=== PATIENT | male | born 1940 | race Caucasian/White ===

== ENCOUNTER 2017-12-28 09:30 | Emergency (ER) | payer MEDICARE ==
[~2017-12-28 09:30] MED LIST: DOPamine/D5W 400 mg/250 ml PREMIX ONE; Sodium Chloride 0.9% 1,000 ML BAG ONE; Sodium Chloride 0.9% 100 ML BAG ONE
[2017-12-28] MEDS ORDERED: Ondansetron HCl/PF 4 MG/2 ML Vial ONE (09:59)
[2017-12-28 10:13] LABS: Bilirubin Moderate (Negative); Blood, Urine Negative (Negative); Clarity Clear (Clear); Glucose, Urine (Dipstick) Negative (Negative); Leukocyte Negative (Negative); Nitrite Negative (Negative); Protein, Urine (Dipstick) > or equal to 300 mg/dL (Neg-Trace); Specific Gravity, Urine 1.026 (1.002-1.036); Urobilinogen 0.2 mg/dL (0.2-1.0)
[2017-12-28 10:14] LABS: Bacteria/HPF 2+ HPF (None Seen); Squamous Epithelial 0-3 HPF (0-3); WBC/HPF 0-3 HPF (0-3)
[2017-12-28 10:15] LABS: RBC/HPF 0-3 HPF (0-3)
[2017-12-28 10:19] LABS: #Basophils 0.1 thou/uL (0.0-0.2); #Lymphocytes 1.2 thou/uL (1.20-3.40); #Monocytes 1.1 thou/uL (0.11-0.59); #Neutrophils 13.9 thou/uL (1.40-6.50); %Basophils 0.4 % (0.0-1.0); %Lymphocytes 7.3 % (21.0-51.0); %Monocytes 6.8 % (0.0-10.0); %Neutrophils 85.5 % (42.0-75.0); Hemoglobin 14.1 g/dL (14.0-18.0); Mean Corpuscular HGB CONC 32.2 g/dL (32.0-36.0); Mean Corpuscular Hemoglobin 29.2 pg (27.0-31.0); Mean Corpuscular Volume 90.6 fl (80.0-94.0); Mean Platelet Volume 7.4 fL (7.4-10.4); Platelet Count 233 thou/uL (130-400); RBC Distribution Width 13.6 % (11.5-14.5); Red Blood Cell (RBC) Count 4.82 mill/uL (4.70-6.10); White Blood Cell (WBC) Count 16.3 thou/uL (4.8-10.8)
[2017-12-28 10:22] LABS: INR-International Normal Ratio 1.6; PTT 31.1 SEC (22.9-36.1); Prothrombin Time 19.3 SEC (12.0-14.7)
[2017-12-28 10:33] LABS: ALT (SGPT) 282 U/L (8-55); AST (SGOT) 395 U/L (5-34); Albumin 4.3 g/dL (3.4-4.8); Alkaline Phosphatase 95 U/L (40-150); Anion Gap 31 mmol/L (10-20); BUN (Urea Nitrogen) 54 mg/dL (8.4-25.7); Bilirubin, Total 1.3 mg/dL (0.2-1.2); CK (CPK) 1309 U/L (30-200); Calc. Creatinine Clearance 0 mL/min (70-130); Calcium 9.4 mg/dL (7.8-10.44); Carbon Dioxide 14 mmol/L (23-31); Chloride 94 mmol/L (98-107); Estimated GFR-MDRD 18; Globulin 3.1 g/dL (2.4-3.5); Glucose 332 mg/dL (83-110); Lipase 10 U/L (8-78); Potassium 5.6 mmol/L (3.5-5.1); Protein, Total 7.4 g/dL (5.8-8.1); Sodium 133 mmol/L (136-145)
--- NOTE | 2017-12-28 10:34 | RAD ---
PORTABLE CHEST: History: Chest pain, nausea, and vomiting. FINDINGS: Heart size is borderline for portable technique. There are sclerotic changes of the aorta. There are some chronic appearing lung changes seen. No focal infiltrative process. Arthritic changes of the lef t shoulder are noted. IMPRESSION: Borderline heart size. Chronic lung change. POS: [facility]
--- NOTE | 2017-12-28 10:42 | RAD ---
2 VIEWS ABDOMEN: Date: 12/28/17 INDICATION: History of nausea and vomiting. FINDINGS: Patient hands overlying chest wall. Lung bases are clear. Bowel gas pattern is nonspecific, but witho ut overt evidence of obstruction. No acute osseous abnormality is evident. IMPRESSION: No acute abnormality. POS: [facility]
[2017-12-28 10:56] LABS: CKMB 108.7 ng/mL (0-6.6)
[2017-12-28] MEDS ORDERED: Piperacillin/Tazobactam 2.25 GM VIAL ONE (11:04)
[2017-12-28] MEDS ORDERED: Heparin 25,000 units/D5W 500 ML ONE (11:33)
[2017-12-28] MEDS ORDERED: Heparin 5,000 UNITS/ML VIAL ONE (11:33)
== END 2017-12-28 11:46 | disposition short-term general hospital (02) ==
LOC: MADERS 09:30
DX: I21.9 Acute myocardial infarction, unspecified (principal); A41.9 Sepsis, unspecified organism; E11.9 Type 2 diabetes mellitus without complications; R00.1 Bradycardia, unspecified; Z79.84 Long term (current) use of oral hypoglycemic drugs; Z79.899 Other long term (current) drug therapy
CPT/HCPCS: 36415; 36416; 51702; 71045; 74018; 80053; 81003; 81015; 82550; 82553; 83605; 83690; 84484; 85025; 85610; 85730; 87040; 87086; 93005; 94760; 96360; 96361; 96365; 96366; 96368; 96374; 96375; J1265; J1644; J2405; J2543; J7050

== ENCOUNTER 2018-07-20 17:45 | Inpatient (IN) | payer MEDICARE ==
[2018-07-20] MEDS: Apixaban 5 MG TAB PO SCH (21:54)
[2018-07-20] MEDS: Tamsulosin HCl 0.4 MG CAP PO SCH (21:54)
[2018-07-20] MEDS: Metoprolol Tartrate 50 MG TAB PO SCH (21:54)
[2018-07-20] MEDS: Gabapentin 300 MG CAP PO SCH (21:54)
[2018-07-20] MEDS ORDERED: Lantiseptic Ointment 130 GM JAR TOP PRN (22:05)
[2018-07-20] MEDS ORDERED: Dextrose 50% Abboject 50 ML SYRINGE IVP PRN (22:05)
[2018-07-20] MEDS ORDERED: Dextrose 5% in Water 1,000 ML IV PRN (22:05)
[2018-07-20] MEDS ORDERED: Lantiseptic Ointment 130 GM JAR ONE (22:50)
[2018-07-20 23:55] LABS: Bilirubin Negative (Negative); Blood, Urine Moderate (Negative); Clarity Hazy (Clear); Glucose, Urine (Dipstick) Negative (Negative); Leukocyte Moderate (Negative); Nitrite Negative (Negative); Protein, Urine (Dipstick) 100 mg/dL (Neg-Trace); Specific Gravity, Urine 1.015 (1.005-1.030)
[2018-07-21 00:02] LABS: Bacteria/HPF 4+ HPF (None Seen); RBC/HPF GREATER THAN 50-TNTC HPF (0-3); Squamous Epithelial 0-3 HPF (0-3)
[2018-07-21] MEDS: glipiZIDE 5 MG TAB PO SCH (08:31)
[2018-07-21] MEDS: Metoprolol Tartrate 50 MG TAB PO SCH ×2 (08:31→20:56)
[2018-07-21] MEDS: Finasteride 5 MG TAB PO SCH (08:31)
[2018-07-21] MEDS: Apixaban 5 MG TAB PO SCH ×2 (08:31→20:56)
[2018-07-21] MEDS: metFORMIN 500 MG TAB PO SCH ×2 (08:31→17:13)
[2018-07-21] MEDS: Digoxin 0.125 MG TAB PO SCH (08:31)
[2018-07-21] MEDS: Gabapentin 300 MG CAP PO SCH ×3 (08:31→20:56)
[2018-07-21] MEDS: Clopidogrel Bisulfate 75 MG TAB PO SCH (08:31)
[2018-07-21] MEDS ORDERED: Collagenase 250 UNITS/GM Ointment 30 GM TUBE TOP SCH (09:00)
[2018-07-21] MEDS: HumaLOG 300 UNITS/3 ML VIAL SC PRN (11:34)
[2018-07-21] MEDS: Tamsulosin HCl 0.4 MG CAP PO SCH (20:56)
[2018-07-21] MEDS: Collagenase 250 UNITS/GM Ointment 30 GM TUBE TOP SCH (20:59)
--- NOTE | 2018-07-22 08:19 | HP ---
PRIMARY CARE PHYSICIAN: Dr. Bettie Hernandez in [place]. REASON FOR ADMISSION: Skilled rehab in [facility] after recent hospitalization. SPECIALIST: Cardiology, ; Nephrology, Dr. Lundy. HISTORY OF THE PRESENT ILLNESS AND HOSPITAL COURSE: Mr. Monae is a 77-year- oldCaucasian male with history of type 2 diabetes, chronic diastolic heart failure,paroxysmal atrial fibrillation, and peripheral vascular disease. He presented to [facility] initially due to anasarca. Associated symptoms include increasing dyspnea, worsening lower extremity edema , scrotal edema, and abdominal wall distention. He has been on diuretic at home and was reported to have no significant response. On further evaluation, he was found to have significant hyponatremia with serum sodium on admission of 121. He was seen and evaluated by both Nephrology and Cardiology. The patient underwent fluid restriction, diuresis and conivaptan therapy. The patient showed a gradual interval improvement of his sodium during his hospital course. He remains to have fluid restriction to 1000 mL per 24 hours, as well as maintenance diuretic therapy until the time of discharge. His sodium at the time of discharge was reported at 133 and the patient was asymptomatic. From cardiology standpoint, the patient 's profound anasarca that was present upon admission showed gradual interval improvement over the course of hospitalization. There was also a suggestion from Cardiology that the patient needs to have an outpatient sleep study and this was already discussed by the hospitalist with the patient as well as the patient's spouse. With regard to the patient's diet, the patient was placed on mechanical soft with extra sauce and gravy and nectar thick liquids by Speech Therapy during his hospitalization secondary to difficulty swallowing noted. There was also a stage III decubital heel wound that was noted during this hospitalization. The patient had undergone wound care treatment during this hospital stay and it was recommended to continue current wound management at the skilled facility. When evaluated today, the patient reports that he is feeling a little better. He could not give a full information about his recent hospitalization, but he reports that he still feels weak and he was recommended to do his therapy so he can go home stronger. States that he needs some help when he is walking, but he is trying to walk using his walker. When orders were reviewed upon admission, there was an order for oxygen per nasal cannula p.r.n. to keep the saturation greater than 88%. The patient has been on room air since admission and there is no significant desaturation reported over the last 12 hours since admission. At this point, the patient reports no other issues. Reports that he is sleeping fine, eating good. He still has the Cerda catheter secondary to reported urinary retention and we are currently on bladder training. PAST MEDICAL HISTORY: As above. The patient also has benign enlargement of the prostate, dyslipidemia, coronary artery disease, and chronic anticoagulation. PAST SURGICAL HISTORY: Left shoulder surgery, cardiac catheterization. PAST PSYCHIATRIC HISTORY: Negative. SOCIAL HISTORY: The patient is . He drinks alcohol socially. He is a former smoker. He quit smoking more than 10 years ago. He denies any other illicit drug use. FAMILY HISTORY: Noncontributory. ALLERGIES: NO KNOWN DRUG ALLERGIES. CURRENT MEDICATION: 1. Eliquis 5 mg p.o. b.i.d. 2. Clopidogrel gel 75 mg p.o. daily. 3. Digoxin 0.125 mg p.o. daily. 4. Finasteride 5 mg p.o. daily. 5. Gabapentin 300 mg p.o. t.i.d. 6. Glipizide 5 mg daily. 7. Metformin 1000 mg p.o. b.i.d. 8. Metoprolol 50 mg p.o. b.i.d. 9. Tamsulosin 0.4 mg p.o. at bedtime. REVIEW OF SYSTEMS: GENERAL: Denies fever or chills. Reports general weakness and fatigue. HEENT: No acute visual changes or hearing changes. He is kind of hard of hearing. RESPIRATORY: No shortness of breath, pain with breathing, sputum production, or bloody sputum. CARDIAC: Denies chest pain, palpitations, dyspnea on exertion, or paroxysmal nocturnal dyspnea. GI: No nausea, vomiting, abdominal pain, diarrhea, or constipation. GENITOURINARY: No dysuria, hematuria, frequency, urgency. Reports obstructive symptoms/urinary retentions, requiring insertion of indwelling cerda cathether. MUSCULOSKELETAL: Reports intermittent joint pains. No joint effusions. No erythema. NEURO: No focal numbness or focal weakness. Gait unsteady. PSYCH: Reports history of insomnia. No depression, anxiety, or hallucinations. PHYSICAL EXAMINATION: VITAL SIGNS: Blood pressure 117/60, temp 98.9, pulse 88, respiration 18, O2 sats 95% on room air. Weight 182 pounds, height 5 feet 7. GENERAL: The patient is awake, alert, and oriented to name and place. He is a little off the date, comfortable, not in distress. No family is around during the examination. HEENT: Normocephalic, atraumatic. [place]. He is mildly hard of hearing. No nasal congestion. No nasal discharge. Oral mucosa is moist. No oral lesions. NECK: Supple. No LAD. Flat JVD. CHEST: Normal excursion. Clear to auscultation bilaterally. CARDIAC: Normal S1 and S2, rate controlled. ABDOMEN: Flat, soft. Normoactive bowel sounds. Nondistended, nontender. No rebound. No guarding. Negative CVA tenderness bilaterally. EXTREMITIES: No edema. No cyanosis. hyperpigmentation of the lower leg skin SKIN: Stage III left heel decubital wound present upon admission. PSYCH: Appears calm, appropriate demeanor and affect, sociable. GENITALIA: [id number] scrotal swelling with erythematous and dry, excoriated surrounding skin. ASSESSMENT AND PLAN: 1. Deconditioning. 2. Acute on chronic diastolic congestive heart failure preserved left-sided ejection fraction. 3. Anasarca secondary to decompensated diastolic congestive heart failure/right- sided heart failure. 4. Hyponatremia, dilutional, severe, improved. 5. Coronary artery disease. 6. Type 2 diabetes. 7. Benign prostatic hypertrophy with obstructive symptoms. 8. History of urinary retention requiring insertion of Cerda catheter. 9. Paroxysmal atrial fibrillation and chronic anticoagulation with Eliquis and beta sherry for rhythm control, currently rate controlled. 10. History of peripheral arterial disease. 11. Stage III left heel decubital wound present on admission. PLAN: The patient is admitted to [facility] for purposes of skilled rehab. We will continue all current medications as modified per list. We will consult OT and PT in order to gain modified independence with his gait and ADL skills prior to returning to the home environment. His comorbidities will be monitored closely. We will continue bladder training for the next 24-48 hours with a goal to remove Cerda catheter as indicated. I will continue to monitor the patient for any medical comorbidities that may interfere with his rehab progress. We will closely monitor his electrolytes and kidney function, as well as digoxin level. CODE STATUS: The patient reports FULL CODE. This is consistent with his records from the hospital. ESTIMATED LENGTH OF STAY: 2-3 weeks. Further recommendations depending on the hospital course. DISPOSITION: Home with . Job ID: [id number] MTDD
[2018-07-22] MEDS: metFORMIN 500 MG TAB PO SCH ×2 (08:26→17:05)
[2018-07-22] MEDS: Digoxin 0.125 MG TAB PO SCH (08:26)
[2018-07-22] MEDS: glipiZIDE 5 MG TAB PO SCH (08:27)
[2018-07-22] MEDS: Gabapentin 300 MG CAP PO SCH ×3 (08:27→20:28)
[2018-07-22] MEDS: Clopidogrel Bisulfate 75 MG TAB PO SCH (08:27)
[2018-07-22] MEDS: Finasteride 5 MG TAB PO SCH (08:27)
[2018-07-22] MEDS: Metoprolol Tartrate 50 MG TAB PO SCH ×2 (08:27→20:28)
[2018-07-22] MEDS: Apixaban 5 MG TAB PO SCH ×2 (08:27→20:28)
[2018-07-22] MEDS: HumaLOG 300 UNITS/3 ML VIAL SC PRN (11:55)
[2018-07-22] MEDS: Tamsulosin HCl 0.4 MG CAP PO SCH (20:28)
[2018-07-22] MEDS: Collagenase 250 UNITS/GM Ointment 30 GM TUBE TOP SCH (20:30)
[2018-07-23] MEDS: Cipro 250 MG TAB PO SCH ×2 (05:05→19:57)
[2018-07-23] MEDS: Digoxin 0.125 MG TAB PO SCH (08:36)
[2018-07-23] MEDS: Finasteride 5 MG TAB PO SCH (08:36)
[2018-07-23] MEDS: Metoprolol Tartrate 50 MG TAB PO SCH ×2 (08:36→19:59)
[2018-07-23] MEDS: Clopidogrel Bisulfate 75 MG TAB PO SCH (08:37)
[2018-07-23] MEDS: glipiZIDE 5 MG TAB PO SCH (08:37)
[2018-07-23] MEDS: Apixaban 5 MG TAB PO SCH ×2 (08:37→19:59)
[2018-07-23] MEDS: metFORMIN 500 MG TAB PO SCH ×2 (08:37→17:15)
[2018-07-23] MEDS: Gabapentin 300 MG CAP PO SCH ×3 (08:37→19:59)
[2018-07-23] MEDS: HumaLOG 300 UNITS/3 ML VIAL SC PRN (12:13)
[2018-07-23] MEDS ORDERED: Sodium Chloride 0.9% 10 ML ONE (16:46)
[2018-07-23] MEDS: Tamsulosin HCl 0.4 MG CAP PO SCH (19:59)
[2018-07-23] MEDS: Collagenase 250 UNITS/GM Ointment 30 GM TUBE TOP SCH (20:00)
[2018-07-24] MEDS: Cipro 250 MG TAB PO SCH ×2 (05:00→20:32)
[2018-07-24] MEDS: Apixaban 5 MG TAB PO SCH ×2 (07:40→20:33)
[2018-07-24] MEDS: metFORMIN 500 MG TAB PO SCH ×2 (07:40→17:36)
[2018-07-24] MEDS: Clopidogrel Bisulfate 75 MG TAB PO SCH (07:40)
[2018-07-24] MEDS: Finasteride 5 MG TAB PO SCH (07:43)
[2018-07-24] MEDS: Digoxin 0.125 MG TAB PO SCH (07:43)
[2018-07-24] MEDS: glipiZIDE 5 MG TAB PO SCH (07:43)
[2018-07-24] MEDS: Gabapentin 300 MG CAP PO SCH ×3 (07:43→20:33)
[2018-07-24] MEDS: Metoprolol Tartrate 50 MG TAB PO SCH ×2 (07:43→20:32)
[2018-07-24] MEDS: HumaLOG 300 UNITS/3 ML VIAL SC PRN (12:07)
[2018-07-24] MEDS: Tamsulosin HCl 0.4 MG CAP PO SCH (20:32)
[2018-07-24] MEDS: Collagenase 250 UNITS/GM Ointment 30 GM TUBE TOP SCH (20:33)
[2018-07-25] MEDS: Cipro 250 MG TAB PO SCH ×2 (05:01→20:32)
[2018-07-25] MEDS: metFORMIN 500 MG TAB PO SCH ×2 (08:34→17:17)
[2018-07-25] MEDS: Gabapentin 300 MG CAP PO SCH ×3 (08:34→20:32)
[2018-07-25] MEDS: Clopidogrel Bisulfate 75 MG TAB PO SCH (08:34)
[2018-07-25] MEDS: Metoprolol Tartrate 50 MG TAB PO SCH ×2 (08:34→20:32)
[2018-07-25] MEDS: Finasteride 5 MG TAB PO SCH (08:34)
[2018-07-25] MEDS: glipiZIDE 5 MG TAB PO SCH (08:35)
[2018-07-25] MEDS: Apixaban 5 MG TAB PO SCH ×2 (08:35→20:32)
[2018-07-25] MEDS: Digoxin 0.125 MG TAB PO SCH (08:35)
[2018-07-25] MEDS: Hyoscyamine Sulfate SL 0.125 mg Tablet SL PRN (13:22)
[2018-07-25] MEDS: Tamsulosin HCl 0.4 MG CAP PO SCH (20:32)
[2018-07-25] MEDS: Collagenase 250 UNITS/GM Ointment 30 GM TUBE TOP SCH (20:34)
[2018-07-26] MEDS: Cipro 250 MG TAB PO SCH ×2 (05:12→20:16)
[2018-07-26 05:19] LABS: ALT (SGPT) 11 U/L (8-55); AST (SGOT) 22 U/L (5-34); Albumin 3.6 g/dL (3.4-4.8); Alkaline Phosphatase 104 U/L (40-150); Anion Gap 16 mmol/L (10-20); BUN (Urea Nitrogen) 25 mg/dL (8.4-25.7); Bilirubin, Total 1.4 mg/dL (0.2-1.2); Calc. Creatinine Clearance 72 mL/min (70-130); Calcium 9.2 mg/dL (7.8-10.44); Carbon Dioxide 29 mmol/L (23-31); Chloride 97 mmol/L (98-107); Estimated GFR-MDRD 75; Glucose 122 mg/dL (83-110); Potassium 4.6 mmol/L (3.5-5.1); Protein, Total 6.6 g/dL (5.8-8.1); Sodium 137 mmol/L (136-145)
[2018-07-26] MEDS: Apixaban 5 MG TAB PO SCH ×2 (08:39→20:16)
[2018-07-26] MEDS: metFORMIN 500 MG TAB PO SCH ×2 (08:39→17:14)
[2018-07-26] MEDS: Finasteride 5 MG TAB PO SCH (08:39)
[2018-07-26] MEDS: glipiZIDE 5 MG TAB PO SCH (08:39)
[2018-07-26] MEDS: Clopidogrel Bisulfate 75 MG TAB PO SCH (08:39)
[2018-07-26] MEDS: Hyoscyamine Sulfate SL 0.125 mg Tablet SL PRN (08:39)
[2018-07-26] MEDS: Metoprolol Tartrate 50 MG TAB PO SCH ×2 (08:39→20:16)
[2018-07-26] MEDS: Digoxin 0.125 MG TAB PO SCH (08:39)
[2018-07-26] MEDS: Gabapentin 300 MG CAP PO SCH ×4 (08:39→20:16)
[2018-07-26] MEDS: Tamsulosin HCl 0.4 MG CAP PO SCH (20:16)
[2018-07-26] MEDS: Collagenase 250 UNITS/GM Ointment 30 GM TUBE TOP SCH (20:16)
[2018-07-27] MEDS: Hyoscyamine Sulfate SL 0.125 mg Tablet SL PRN ×3 (00:27→13:18)
[2018-07-27] MEDS: Cipro 250 MG TAB PO SCH ×2 (05:49→20:30)
[2018-07-27] MEDS: Gabapentin 300 MG CAP PO SCH ×3 (08:19→20:30)
[2018-07-27] MEDS: Metoprolol Tartrate 50 MG TAB PO SCH ×2 (08:19→20:31)
[2018-07-27] MEDS: glipiZIDE 5 MG TAB PO SCH (08:19)
[2018-07-27] MEDS: Clopidogrel Bisulfate 75 MG TAB PO SCH (08:19)
[2018-07-27] MEDS: metFORMIN 500 MG TAB PO SCH ×2 (08:19→17:09)
[2018-07-27] MEDS: Apixaban 5 MG TAB PO SCH ×2 (08:19→20:30)
[2018-07-27] MEDS: Finasteride 5 MG TAB PO SCH (08:19)
[2018-07-27] MEDS: Digoxin 0.125 MG TAB PO SCH (08:20)
[2018-07-27] MEDS: Tamsulosin HCl 0.4 MG CAP PO SCH (20:31)
[2018-07-27] MEDS: Collagenase 250 UNITS/GM Ointment 30 GM TUBE TOP SCH (20:31)
[2018-07-28] MEDS: Cipro 250 MG TAB PO SCH ×2 (04:59→20:31)
[2018-07-28] MEDS: glipiZIDE 5 MG TAB PO SCH (08:38)
[2018-07-28] MEDS: Apixaban 5 MG TAB PO SCH ×2 (08:38→20:31)
[2018-07-28] MEDS: Gabapentin 300 MG CAP PO SCH ×3 (08:38→20:31)
[2018-07-28] MEDS: Clopidogrel Bisulfate 75 MG TAB PO SCH (08:38)
[2018-07-28] MEDS: metFORMIN 500 MG TAB PO SCH ×2 (08:38→17:04)
[2018-07-28] MEDS: Metoprolol Tartrate 50 MG TAB PO SCH ×2 (08:38→20:31)
[2018-07-28] MEDS: Finasteride 5 MG TAB PO SCH (08:38)
[2018-07-28] MEDS: Digoxin 0.125 MG TAB PO SCH (08:43)
[2018-07-28] MEDS: Tamsulosin HCl 0.4 MG CAP PO SCH (20:31)
[2018-07-28] MEDS: Collagenase 250 UNITS/GM Ointment 30 GM TUBE TOP SCH (20:31)
[2018-07-29] MEDS: Cipro 250 MG TAB PO SCH (05:05)
[2018-07-29] MEDS: metFORMIN 500 MG TAB PO SCH ×2 (08:07→17:34)
[2018-07-29] MEDS: glipiZIDE 5 MG TAB PO SCH (08:07)
[2018-07-29] MEDS: Metoprolol Tartrate 50 MG TAB PO SCH ×2 (08:08→21:40)
[2018-07-29] MEDS: Finasteride 5 MG TAB PO SCH (08:08)
[2018-07-29] MEDS: Digoxin 0.125 MG TAB PO SCH (08:08)
[2018-07-29] MEDS: Apixaban 5 MG TAB PO SCH ×2 (08:08→21:40)
[2018-07-29] MEDS: Gabapentin 300 MG CAP PO SCH ×3 (08:08→21:40)
[2018-07-29] MEDS: Clopidogrel Bisulfate 75 MG TAB PO SCH (08:08)
[2018-07-29 21:26] VITALS: BMI 26.5
[2018-07-29] MEDS: Tamsulosin HCl 0.4 MG CAP PO SCH (21:40)
[2018-07-29] MEDS: Collagenase 250 UNITS/GM Ointment 30 GM TUBE TOP SCH (21:41)
[2018-07-30 07:08] VITALS: BP 127/69; TEMP 98
[2018-07-30] MEDS: metFORMIN 500 MG TAB PO SCH (08:16)
[2018-07-30] MEDS: Apixaban 5 MG TAB PO SCH (08:17)
[2018-07-30] MEDS: Metoprolol Tartrate 50 MG TAB PO SCH (08:17)
[2018-07-30] MEDS: Gabapentin 300 MG CAP PO SCH (08:17)
[2018-07-30] MEDS: Digoxin 0.125 MG TAB PO SCH (08:17)
[2018-07-30] MEDS: glipiZIDE 5 MG TAB PO SCH (08:17)
[2018-07-30] MEDS: Clopidogrel Bisulfate 75 MG TAB PO SCH (08:17)
[2018-07-30] MEDS: Finasteride 5 MG TAB PO SCH (08:17)
[2018-07-31] MEDS ORDERED: Digoxin 0.125 MG TAB PO SCH (09:00)
--- NOTE | 2018-08-01 12:58 | DIS ---
DATE OF ADMISSION: 07/20/2018 DATE OF DISCHARGE: 07/30/2018 ATTENDING PHYSICIAN: Dr. Stokes. PRIMARY CARE PHYSICIAN: Dr. Bettie Hernandez in [place]. REASON FOR ADMISSION: Skilled rehab in [facility] post hospitalization. DISPOSITION: Home. CONDITION ON DISCHARGE: Stable. DISCHARGE DIAGNOSES: 1. Physical deconditioning. 2. General weakness. 3. Acute on chronic diastolic congestive heart failure with preserved left ejection fraction. 4. Benign prostatic hyperplasia with obstructive symptoms. 5. Acute urinary retention requiring reinsertion of indwelling urinary catheter. Has a followup appointment with the urologist. 6. History of anasarca secondary to decompensated diastolic congestive heart failure/right-sided heart failure, improved. 7. Severe hyponatremia, deemed dilutional, improved. 8. Paroxysmal atrial fibrillation, on chronic anticoagulation with Eliquis and beta sherry for rhythm control. Currently rate controlled. 9. Stage III left heel decubitus wound, present on admission, healing in appearance prior to discharge. 10. Coronary artery disease. 11. Type 2 diabetes, controlled. 12. Unsteady gait, at risk for falls. MEDICATIONS: 1. Digoxin 0.125 mg p.o. daily. 2. Furosemide 40 mg p.o. daily. 3. Metoprolol 50 mg p.o. b.i.d. 4. Santyl 250 units/g ointment to apply topically as directed 1 time daily. 5. Gabapentin 300 mg p.o. t.i.d. 6. Glipizide 5 mg p.o. daily. 7. Lantiseptic p.r.n. 8. Metformin 1000 mg p.o. b.i.d. 9. Tamsulosin 0.4 mg daily. 10. Plavix 75 mg p.o. daily. 11. Eliquis 5 mg p.o. b.i.d. INSTRUCTIONS: 1. Diet: AHA.Fluid restriction 1,500 ml per 24 hours. 2. Activity: To use a rolling walker at all times. Follow up with PCP in 1 week. to arrange appointment. Follow up with urologist, Dr. Chaudhary on 08/03/2018 at 11:30. Follow up with Cardio, Dr. Kwong on 08/12/2018. Routine Corona catheter care education prior to discharge. Referred to home health of [facility] for PT, OT, wound care and correction. HISTORY OF THE PRESENT ILLNESS AND HOSPITAL COURSE: Mr. Monae is a pleasant 77-year-old male with history of hypertension, CHF, PVD, diabetes, and paroxysmal atrial fibrillation. He was initially admitted to [facility] secondary to anasarca. Associated symptoms include increasing dyspnea, worsening lower extremity edema, scrotal edema, and abdominal wall distention. He was treated appropriately in the hospital with diuretics, fluid restriction, and conivaptan therapy. / environmental conflict manager and Dr. Lundy/manager strategic development were in consultation during his hospitalization. Complications during the hospitalization include severe hyponatremia, deemed dilutional, thus fluid restriction was ordered. His sodium at the time of discharge went up to 133 and the patient was asymptomatic. Overall, anasarca improving in a gradual manner. When he was transferred to [facility] for skilled rehab, a residual edema from scrotal region is the only one left. The patient showed a gradual interval improvement of the scrotal swelling and prior to discharge, scrotal swelling was completely resolved. During this hospitalization, there was a reported acute urinary retention that required insertion of indwelling urinary catheter. Note, the patient has history of BPH. When he was transferred to [facility], he was still on Corona catheter with an order to bladder training for 24 more hours and subsequent removal of the Foleycatheter. The patient underwent training for 72 hours in [facility] before we finally removed the Corona catheter, however, the patient did not make a good progress in urination thereafter. He was reported to have intermittent straight catheterizations post removal of Foleycath, secondary to having bladder distention, bladder spasm and urinary retention. He ended up having reinsertion of the Corona catheter. Patient will be going home with the foleycath. The patient was recommended to follow up as outpatient with urologist after discharge. requested to change urologist to Dr. Chaudhary instead. Appointment was made for Dr. Chaudhary on 08/03/2018. With regards to his left heel pressure ulcer, the patient presented with stage III left heel decubitus ulcer that has been present for a long time at home prior to this hospitalization. During his hospital stay and rehab stay, the patient's wound made a significant interval improvement. He was sent home with superficial open wound, but almost closing left heel ulcer, requiring to continue wound care with Santyl daily. Home health was arranged for the patient prior to discharge. Patient's sodium prior to discharge was 137 on . Prior to discharge, we reconciled patient's medications with . was notified of the med changes from the hospital. Prescriptions for new medications were sent to the pharmacy of choice. was likewise educated and trained by the staff for wound care management and foleycath care prior to discharge. Education with diet and , fluid restrictions were emphasized to as well. All the questions of was answered to her satisfaction. Vital signs prior to discharge; blood pressure 127/69, temperature 98, pulse 80 , respiration 20, O2 sats 97% at room air. Weight 168 pounds and 1 ounce. Height 5 feet 7. Time spent in this discharge, 32 minutes in examining the patient, counseling/ educating the spouse who acts as the primary insight leader of the patient at home and coordinating care. Job ID: [id number] [facility]
== END 2018-07-30 13:10 | disposition home or self-care (01) | DRG 291 ==
LOC: MADMS 17:49
PROVIDERS: ADMIT Family Medicine; ATTEND Family Medicine
PROC: 0T9B70Z Drainage of Bladder with Drainage Device, Via Natural or Artificial Opening (ICD-10-PCS; principal; 2018-07-27)
DX: I50.32 Chronic diastolic (congestive) heart failure (principal); L89.623 Pressure ulcer of left heel, stage 3; E87.1 Hypo-osmolality and hyponatremia; N39.0 Urinary tract infection, site not specified; I48.0 Paroxysmal atrial fibrillation; E11.51 Type 2 diabetes mellitus with diabetic peripheral angiopathy without gangrene; N50.89 Other specified disorders of the male genital organs; N40.1 Benign prostatic hyperplasia with lower urinary tract symptoms; R33.8 Other retention of urine; E78.5 Hyperlipidemia, unspecified; R26.81 Unsteadiness on feet; I25.10 Atherosclerotic heart disease of native coronary artery without angina pectoris; Z79.01 Long term (current) use of anticoagulants; Z87.891 Personal history of nicotine dependence; Z79.84 Long term (current) use of oral hypoglycemic drugs
CPT/HCPCS: 36415; 36416; 80053; 81015; 87077; 87086; 87186

== ENCOUNTER 2018-08-26 16:38 | Inpatient (IN) | payer MEDICARE ==
[2018-08-26] MEDS ORDERED: Acetaminophen 325 MG TAB PO PRN (17:17)
[2018-08-26] MEDS ORDERED: Ondansetron ODT 4 MG TAB PO PRN (17:17)
[2018-08-26] MEDS ORDERED: Oxybutynin ER 5 MG TAB PO PRN (17:17)
[2018-08-26] MEDS ORDERED: Dextrose 50% Abboject 50 ML SYRINGE SLOW IVP PRN (17:44)
[2018-08-26] MEDS ORDERED: Dextrose 5% in Water 1,000 ML IV PRN (17:44)
[2018-08-26] MEDS: Gabapentin 300 MG CAP PO SCH (20:10)
[2018-08-26] MEDS: Doxycycline 100 MG CAP PO SCH (20:10)
[2018-08-26] MEDS: Metoprolol Tartrate 50 MG TAB PO SCH (20:11)
[2018-08-26] MEDS: Tamsulosin HCl 0.4 MG CAP PO SCH (20:12)
[2018-08-26] MEDS: HYDROcodone/Acetaminophen 5/325 mg Tablet PO PRN (20:16)
[2018-08-27 05:20] LABS: Anion Gap 12 mmol/L (10-20); BUN (Urea Nitrogen) 18 mg/dL (8.4-25.7); Calc. Creatinine Clearance 77 mL/min (70-130); Calcium 9.2 mg/dL (7.8-10.44); Carbon Dioxide 28 mmol/L (23-31); Chloride 105 mmol/L (98-107); Estimated GFR-MDRD 89; Glucose 103 mg/dL (83-110); Potassium 5.1 mmol/L (3.5-5.1); Sodium 140 mmol/L (136-145)
[2018-08-27] MEDS: Polyethylene Glycol 3350 17 GM Packet PO SCH (09:00)
[2018-08-27] MEDS: Finasteride 5 MG TAB PO SCH (09:12)
[2018-08-27] MEDS: Metoprolol Tartrate 50 MG TAB PO SCH ×2 (09:12→21:15)
[2018-08-27] MEDS: Furosemide 20 MG TAB PO SCH (09:12)
[2018-08-27] MEDS: Clopidogrel Bisulfate 75 MG TAB PO SCH (09:12)
[2018-08-27] MEDS: glipiZIDE 5 MG TAB PO SCH (09:12)
[2018-08-27] MEDS: Digoxin 0.125 MG TAB PO SCH (09:13)
[2018-08-27] MEDS: Doxycycline 100 MG CAP PO SCH ×2 (09:13→21:15)
[2018-08-27] MEDS: Gabapentin 300 MG CAP PO SCH ×3 (09:13→21:15)
[2018-08-27] MEDS: Collagenase 250 UNITS/GM Ointment 30 GM TUBE TOP SCH (10:02)
--- NOTE | 2018-08-27 11:21 | HP ---
PRIMARY CARE PHYSICIAN: Dr. Bettie Hernandez in [place]. UROLOGIST: Dr. Chaudhary. LIFE ADVISOR: Dr. Lundy. COTTON WASHER: . REASON FOR ADMISSION: Skilled rehab in [facility] after recent hospitalization. HISTORY OF THE PRESENT ILLNESS AND HOSPITAL COURSE: Mr. Monae is a 77-year- old with a history of hypertension; dyslipidemia; diabetes, type 2; chronic diastolic congestive heart failure; paroxysmal atrial fibrillation; and coronary artery disease; who was recently admitted in [facility] on 08/23/2018 secondary to suprapubic tenderness and bleeding around his newly placed suprapubic catheter. Spouse, who gave most of the information, reports that after his recent admission from the hospital in July, the patient went home with a Corona catheter secondary to BPH with obstructive urinary symptoms. He followed up with Dr. Chaudhary thereafter and suprapubic catheter was placed on 08/20/2018. Post-placement of the initial suprapubic catheter, they noted bleeding around the area and went back to the ER on the same day. From the ER, the bleeding was fixed and did improve and was discharged back home. Spouse reports the bleeding recurred the morning after, so patient was admitted back to the hospital. During this hospitalization, the patient was noted to have a low sodium of 123 and his BNP was elevated with normal creatinine. He was also found to have urinary tract infection. His urine culture out grew MRSA. The patient was treated with antibiotic. He was initially off his Plavix. Aspirin and Eliquis were withheld. The bleeding did stop eventually. Reinstitution of blood thinners was allowed in coordination with the urologist. The patient was continued on Plavix at this time, but not with Eliquis. Further recommendations on reinstitution of Eliquis when he followed up with Cardiology as an outpatient. His antibiotic was switched to oral Doxycycline with a recommendation to complete a 14-day course upon transfer.It was also reported that the patient initially presented with edema, but with persistent low sodium. Dr. Lundy was consulted for nephro care. He was tried on normal saline bolus to see if the patient has been over diuresed; however, this did not improve the sodium, so the patient was diagnosed with SIADH. He received a single dose of tolvaptan with resolution of hyponatremia. His sodium prior to discharge on 08/26/2018 was up to 138. The patient was doing well on the day of discharge; however, reports that his physical strength is not at baseline and she will not be able to manage him by herself at home at this point, thus they both agreed to proceed to [facility] for skilled rehab prior to going back to the home environment. When evaluated, the patient was awake, alert, and oriented. He has a little knowledge of what had he been through prior to admission, but most of the history was dictated by his . reports that the patient was previously on medications, both metformin and glipizide for his diabetes. However,when we received the patient, he was only on glipizide. also confirms that the patient was initially on Lasix 40 mg p.o. daily. At this time, the patient is on Lasix 20 mg p.o. daily. Patient also had a history of chronic nonhealing ulcer in the left heel, deemed to be a pressure ulcer. He is being treated with Santyl daily for this by home health nurse under the supervision of Dr. Alva. Patient reports no apparent pain nor swelling on the left heel at this time. PAST MEDICAL HISTORY: Diabetes, type 2; hypertension; dyslipidemia; CHF; CAD; chronic diastolic heart failure; paroxysmal atrial fibrillation; benign enlargement of prostate with obstructive symptoms, requiring insertion of indwelling Corona catheter; chronic nonhealing ulcer of the left heel; unsteady gait. PAST SURGICAL HISTORY: Left shoulder surgery, cardiac catheterization with stent placement in the past, recent suprapubic catheter placement per HPI. SOCIAL HISTORY: The patient is . He drinks alcohol socially, which appears to be 1 to 2 drinks a month. He was a former smoker and quit about 10 years ago. He denies any illicit drug use. His primary care coordinator is his . FAMILY HISTORY: Noncontributory at this time. ALLERGIES: SULFAMETHOXAZOLE, TRAMADOL, TRIMETHOPRIM. CURRENT MEDICATIONS: 1. Acetaminophen 650 mg p.o. q.4 p.r.n. 2. Plavix 75 mg p.o. daily. 3. Digoxin 0.125 mg p.o. daily. 4. Doxycycline 100 mg p.o. b.i.d. 5. Finasteride 5 mg p.o. daily. 6. Furosemide 20 mg p.o. daily. 7. Gabapentin 300 mg p.o. t.i.d. 8. Glipizide 5 mg p.o. daily. 9. Hydrocodone/APAP 5/325 mg one tablet p.o. q.6 hours p.r.n. 10. Metoprolol 25 mg p.o. b.i.d. 11. Oxybutynin 5 mg p.o. q.8 hours p.r.n. 12. Polyethylene glycol 17 g p.o. daily. 13. Santyl 250 units/g ointment daily to the affected area. 14. Tamsulosin 0.4 mg p.o. at bedtime. REVIEW OF SYSTEMS: GENERAL: Denied fever, chills, or loss of appetite. Reports generalized weakness/fatigue. HEENT: No acute visual or hearing changes. No cold symptoms. No headache. RESPIRATORY: No cough, sputum production, pain with breathing, shortness of breath or wheezing. CARDIAC: No chest pain, orthopnea, or paroxysmal nocturnal dyspnea. Reports intermittent leg edema. GI: No nausea, vomiting, abdominal pain, or diarrhea. No rectal bleeding. Reports constipation. GENITOURINARY: Per HPI. Positive suprapubic catheter in place. MUSCULOSKELETAL: Reports intermittent joint stiffness and joint pains. NEUROLOGIC: No focal numbness or focal weakness. No seizures. PSYCHIATRIC: No depressive symptoms, anxiety, hallucinations, or insomnia. SKIN: Reports chronic nonhealing pressure ulcer in the left heel. Otherwise, no other rashes, pruritus, or other lesions. PHYSICAL EXAMINATION: VITAL SIGNS: Blood pressure 115/59, temperature 98.8, pulse 81, respirations 18 ,and O2 saturations 97% on room air. Weight 158 pounds and 4 ounces. Height 5 feet and 7 inches. GENERAL: The patient is awake, alert, oriented, spontaneous speech, comfortable in exam, not in acute distress. HEENT: Normocephalic and atraumatic. PERRL. Intact EOM. Anicteric sclerae. Oral mucosa is moist. No oral lesions. NECK: Supple. No LAD. Flat JVD. No thyromegaly. CARDIAC: Rate controlled, normal S1 and S2. ABDOMEN: Flat, soft. Normoactive bowel sounds. Nondistended, nontender. No rebound or guarding. Negative CVA tenderness bilaterally. GENITOURINARY: Suprapubic in place, clean looking site. No bleeding noted. EXTREMITIES: No edema. No cyanosis. NEUROLOGIC: Nonfocal. DTRs 2+. Gait unsteady. Requiring rolling walkers for ambulation. PSYCHIATRIC: Appears calm with appropriate demeanor and affect, cooperative, interactive. SKIN: circular, open wound on the left heel, about 1.2 cm in size, superficial, clean looking,pinkish wound bed, with granulation tissue, dry, no exudate. No periwound erythema nor surrounding edema. No s igns of infection DIAGNOSTIC STUDIES: Recent blood works and test: 1. Bilateral venous ultrasound showing no evidence of deep venous thrombosis. 2. Pelvic CT showing suprapubic catheter and transurethral catheter balloons located in the urinary bladder. 3. Repeat pelvic CT after suprapubic catheter pull partway again re- demonstrating both balloons within the bladder. LABORATORY DATA: On 08/24/2018; WBC 12.5, hemoglobin 10.7, hematocrit 34.6,platelets 209. Chemistry on 08/26/2018; sodium 138, potassium 5.4, chloride 102,carbon dioxide 27, BUN 19, creatinine 1.03, estimated GFR 70, glucose 128, and calcium 9.6. ASSESSMENT AND PLAN: 1. Deconditioning. 2. Urinary tract infection with methicillin-resistant Staphylococcus aureus. 3. Hyponatremia from syndrome of inappropriate antidiuretic hormone secretion, improved. 4. Benign prostatic hyperplasia with obstructive urinary symptoms, status post suprapubic catheter placement x2. 5. Hematuria, resolved. 6. Diastolic congestive heart failure with acute exacerbation, mild, now at baseline. 7. Unsteady gait. 8. General weakness. 9. Chronic,non healing pressure wound ulcer,left heel. SECONDARY DIAGNOSES: 1. Diabetes, type 2. 2. Dyslipidemia. 3. Hypertension. 4. Peripheral arterial disease. 5. Paroxysmal atrial fibrillation. 6. Coronary artery disease with history of stents. 7. FCI use of anticoagulant,antiplatelet and antithrombotic. The patient is admitted to [facility]/Surg for purposes of skilled rehab. We will consult. PT to gain modified independence with mobility and household ambulation with a rolling walker, weightbearing as tolerated. OT consult to gain modified independence with self-care ADL skills. We will continue all current medications as per list. We will monitor the patient for any medical comorbidities that may interfere with rehab progress. Routine suprapubic care per nursing protocol. Repeat blood work in the morning. Accu-Chek q.a.c. with sliding scale coverage.Consider re-initiation of metformin if deemed appropriate. We will complete Doxycycline for 14 days as per recommendation. Plavix will be resumed per transfer list. Of note, there was no aspirin ordered at this point. Eliquis was likewise discontinued, and he will follow with Cardiology in a week or two for further recommendation of reinstituting the anticoagulant. Continue routine wound care management with Santyl application and change of dressing daily. Pressure off loading on both heels/feet, either with heel boot or use of pillows. Further recommendations depending on the hospital course. ESTIMATED LENGTH OF STAY: 1 to 2 weeks. CODE STATUS: The patient reports FULL CODE in the presence of . concurs with the patient's wishes. Job ID: [id number] MTDD
[2018-08-27] MEDS: Tamsulosin HCl 0.4 MG CAP PO SCH (21:16)
[2018-08-28] MEDS: Clopidogrel Bisulfate 75 MG TAB PO SCH (08:22)
[2018-08-28] MEDS: Metoprolol Tartrate 50 MG TAB PO SCH ×2 (08:22→21:44)
[2018-08-28] MEDS: Digoxin 0.125 MG TAB PO SCH (08:23)
[2018-08-28] MEDS: Finasteride 5 MG TAB PO SCH (08:23)
[2018-08-28] MEDS: Gabapentin 300 MG CAP PO SCH ×3 (08:23→21:44)
[2018-08-28] MEDS: Polyethylene Glycol 3350 17 GM Packet PO SCH (08:23)
[2018-08-28] MEDS: Doxycycline 100 MG CAP PO SCH ×2 (08:23→21:44)
[2018-08-28] MEDS: Furosemide 20 MG TAB PO SCH (08:23)
[2018-08-28] MEDS: glipiZIDE 5 MG TAB PO SCH (08:23)
[2018-08-28] MEDS: Collagenase 250 UNITS/GM Ointment 30 GM TUBE TOP SCH (08:24)
[2018-08-28] MEDS: HYDROcodone/Acetaminophen 5/325 mg Tablet PO PRN (15:38)
[2018-08-28] MEDS: Tamsulosin HCl 0.4 MG CAP PO SCH (21:44)
[2018-08-29] MEDS: Furosemide 20 MG TAB PO SCH (08:07)
[2018-08-29] MEDS: Finasteride 5 MG TAB PO SCH (08:07)
[2018-08-29] MEDS: glipiZIDE 5 MG TAB PO SCH (08:07)
[2018-08-29] MEDS: Doxycycline 100 MG CAP PO SCH ×2 (08:07→20:46)
[2018-08-29] MEDS: Digoxin 0.125 MG TAB PO SCH (08:07)
[2018-08-29] MEDS: Polyethylene Glycol 3350 17 GM Packet PO SCH (08:07)
[2018-08-29] MEDS: Metoprolol Tartrate 50 MG TAB PO SCH ×2 (08:07→20:46)
[2018-08-29] MEDS: Gabapentin 300 MG CAP PO SCH ×3 (08:07→20:46)
[2018-08-29] MEDS: Clopidogrel Bisulfate 75 MG TAB PO SCH (08:07)
[2018-08-29] MEDS: Collagenase 250 UNITS/GM Ointment 30 GM TUBE TOP SCH (08:08)
[2018-08-29] MEDS: HumaLOG 300 UNITS/3 ML VIAL SC PRN (11:47)
[2018-08-29] MEDS: Tamsulosin HCl 0.4 MG CAP PO SCH (20:47)
[2018-08-30] MEDS: Finasteride 5 MG TAB PO SCH (09:30)
[2018-08-30] MEDS: Gabapentin 300 MG CAP PO SCH ×4 (09:30→20:40)
[2018-08-30] MEDS: Furosemide 20 MG TAB PO SCH (09:30)
[2018-08-30] MEDS: Clopidogrel Bisulfate 75 MG TAB PO SCH (09:30)
[2018-08-30] MEDS: glipiZIDE 5 MG TAB PO SCH (09:30)
[2018-08-30] MEDS: Metoprolol Tartrate 50 MG TAB PO SCH ×2 (09:30→20:39)
[2018-08-30] MEDS: Digoxin 0.125 MG TAB PO SCH (09:30)
[2018-08-30] MEDS: Polyethylene Glycol 3350 17 GM Packet PO SCH (09:31)
[2018-08-30] MEDS: Collagenase 250 UNITS/GM Ointment 30 GM TUBE TOP SCH (09:31)
[2018-08-30] MEDS: Doxycycline 100 MG CAP PO SCH ×2 (09:31→20:39)
[2018-08-30] MEDS: HumaLOG 300 UNITS/3 ML VIAL SC PRN (12:19)
[2018-08-30] MEDS: HYDROcodone/Acetaminophen 5/325 mg Tablet PO PRN ×2 (12:24→19:08)
[2018-08-30] MEDS: metFORMIN 500 MG TAB PO SCH (17:24)
[2018-08-30] MEDS: Tamsulosin HCl 0.4 MG CAP PO SCH (20:39)
[2018-08-31] MEDS: Furosemide 20 MG TAB PO SCH (08:38)
[2018-08-31] MEDS: Doxycycline 100 MG CAP PO SCH ×2 (08:38→20:40)
[2018-08-31] MEDS: Gabapentin 300 MG CAP PO SCH ×3 (08:38→20:40)
[2018-08-31] MEDS: glipiZIDE 5 MG TAB PO SCH (08:38)
[2018-08-31] MEDS: metFORMIN 500 MG TAB PO SCH ×2 (08:39→16:36)
[2018-08-31] MEDS: Polyethylene Glycol 3350 17 GM Packet PO SCH ×2 (08:39→12:08)
[2018-08-31] MEDS: Clopidogrel Bisulfate 75 MG TAB PO SCH (08:39)
[2018-08-31] MEDS: Metoprolol Tartrate 50 MG TAB PO SCH ×2 (08:39→20:41)
[2018-08-31] MEDS: Finasteride 5 MG TAB PO SCH (08:39)
[2018-08-31] MEDS: Collagenase 250 UNITS/GM Ointment 30 GM TUBE TOP SCH (08:39)
[2018-08-31] MEDS: Digoxin 0.125 MG TAB PO SCH (08:40)
[2018-08-31] MEDS: HumaLOG 300 UNITS/3 ML VIAL SC PRN (12:08)
[2018-08-31] MEDS ORDERED: Bacitracin Zinc 1 Packet TOP SCH (16:30)
[2018-08-31] MEDS: Bacitracin Zinc 1 Packet TOP SCH (20:40)
[2018-08-31] MEDS: Tamsulosin HCl 0.4 MG CAP PO SCH (20:41)
[2018-09-01] MEDS: Polyethylene Glycol 3350 17 GM Packet PO SCH (08:47)
[2018-09-01] MEDS: Gabapentin 300 MG CAP PO SCH ×3 (08:48→20:57)
[2018-09-01] MEDS: Bacitracin Zinc 1 Packet TOP SCH ×2 (08:48→21:02)
[2018-09-01] MEDS: Digoxin 0.125 MG TAB PO SCH (08:48)
[2018-09-01] MEDS: Finasteride 5 MG TAB PO SCH (08:48)
[2018-09-01] MEDS: Doxycycline 100 MG CAP PO SCH ×2 (08:48→20:57)
[2018-09-01] MEDS: Clopidogrel Bisulfate 75 MG TAB PO SCH (08:49)
[2018-09-01] MEDS: Metoprolol Tartrate 50 MG TAB PO SCH ×2 (08:49→20:57)
[2018-09-01] MEDS: Furosemide 20 MG TAB PO SCH (08:49)
[2018-09-01] MEDS: glipiZIDE 5 MG TAB PO SCH (08:49)
[2018-09-01] MEDS: metFORMIN 500 MG TAB PO SCH ×2 (08:49→17:09)
[2018-09-01] MEDS: Collagenase 250 UNITS/GM Ointment 30 GM TUBE TOP SCH (09:00)
[2018-09-01] MEDS: HYDROcodone/Acetaminophen 5/325 mg Tablet PO PRN (11:19)
[2018-09-01] MEDS: HumaLOG 300 UNITS/3 ML VIAL SC PRN (12:01)
[2018-09-01] MEDS: Tamsulosin HCl 0.4 MG CAP PO SCH (20:57)
[2018-09-02] MEDS: HYDROcodone/Acetaminophen 5/325 mg Tablet PO PRN (05:31)
[2018-09-02] MEDS: glipiZIDE 5 MG TAB PO SCH (09:19)
[2018-09-02] MEDS: Metoprolol Tartrate 50 MG TAB PO SCH ×2 (09:19→20:21)
[2018-09-02] MEDS: Gabapentin 300 MG CAP PO SCH ×3 (09:19→20:25)
[2018-09-02] MEDS: Digoxin 0.125 MG TAB PO SCH (09:19)
[2018-09-02] MEDS: metFORMIN 500 MG TAB PO SCH ×2 (09:19→16:55)
[2018-09-02] MEDS: Polyethylene Glycol 3350 17 GM Packet PO SCH (09:20)
[2018-09-02] MEDS: Clopidogrel Bisulfate 75 MG TAB PO SCH (09:20)
[2018-09-02] MEDS: Collagenase 250 UNITS/GM Ointment 30 GM TUBE TOP SCH (09:20)
[2018-09-02] MEDS: Furosemide 20 MG TAB PO SCH (09:20)
[2018-09-02] MEDS: Finasteride 5 MG TAB PO SCH (09:20)
[2018-09-02] MEDS: Doxycycline 100 MG CAP PO SCH ×2 (09:20→20:22)
[2018-09-02] MEDS: Nystatin Cream 15 GM TUBE TOP SCH ×2 (09:20→20:25)
[2018-09-02] MEDS: Bacitracin Zinc 1 Packet TOP SCH ×2 (09:20→20:25)
[2018-09-02] MEDS: HumaLOG 300 UNITS/3 ML VIAL SC PRN (12:05)
[2018-09-02] MEDS ORDERED: Senokot S 8.6-50 MG TAB PO PRN (16:06)
[2018-09-02] MEDS: Tamsulosin HCl 0.4 MG CAP PO SCH (20:22)
[2018-09-03] MEDS: HYDROcodone/Acetaminophen 5/325 mg Tablet PO PRN ×2 (08:19→17:05)
[2018-09-03] MEDS: Gabapentin 300 MG CAP PO SCH ×3 (08:20→21:14)
[2018-09-03] MEDS: Furosemide 20 MG TAB PO SCH (08:20)
[2018-09-03] MEDS: Clopidogrel Bisulfate 75 MG TAB PO SCH (08:20)
[2018-09-03] MEDS: Metoprolol Tartrate 50 MG TAB PO SCH ×2 (08:20→21:13)
[2018-09-03] MEDS: glipiZIDE 5 MG TAB PO SCH (08:20)
[2018-09-03] MEDS: metFORMIN 500 MG TAB PO SCH ×2 (08:21→17:02)
[2018-09-03] MEDS: Nystatin Cream 15 GM TUBE TOP SCH ×2 (08:21→21:14)
[2018-09-03] MEDS: Digoxin 0.125 MG TAB PO SCH (08:21)
[2018-09-03] MEDS: Doxycycline 100 MG CAP PO SCH ×2 (08:21→21:13)
[2018-09-03] MEDS: Fluconazole 100 MG TAB PO SCH (08:21)
[2018-09-03] MEDS: Polyethylene Glycol 3350 17 GM Packet PO SCH (08:21)
[2018-09-03] MEDS: Finasteride 5 MG TAB PO SCH (08:21)
[2018-09-03] MEDS: Bacitracin Zinc 1 Packet TOP SCH (08:21)
[2018-09-03] MEDS: Collagenase 250 UNITS/GM Ointment 30 GM TUBE TOP SCH (08:22)
[2018-09-03] MEDS: HumaLOG 300 UNITS/3 ML VIAL SC PRN (12:06)
[2018-09-03] MEDS: Tamsulosin HCl 0.4 MG CAP PO SCH (21:13)
[2018-09-03] MEDS: Mupirocin 2% Ointment 22 GM Tube TOP SCH (21:20)
[2018-09-04] MEDS: Gabapentin 300 MG CAP PO SCH ×3 (08:26→20:35)
[2018-09-04] MEDS: Metoprolol Tartrate 50 MG TAB PO SCH ×2 (08:26→20:35)
[2018-09-04] MEDS: metFORMIN 500 MG TAB PO SCH ×2 (08:26→18:10)
[2018-09-04] MEDS: glipiZIDE 5 MG TAB PO SCH (08:26)
[2018-09-04] MEDS: Fluconazole 100 MG TAB PO SCH (08:26)
[2018-09-04] MEDS: Clopidogrel Bisulfate 75 MG TAB PO SCH (08:26)
[2018-09-04] MEDS: Polyethylene Glycol 3350 17 GM Packet PO SCH (08:26)
[2018-09-04] MEDS: Doxycycline 100 MG CAP PO SCH ×2 (08:26→20:35)
[2018-09-04] MEDS: Finasteride 5 MG TAB PO SCH (08:26)
[2018-09-04] MEDS: Digoxin 0.125 MG TAB PO SCH (08:26)
[2018-09-04] MEDS: Furosemide 20 MG TAB PO SCH (08:27)
[2018-09-04] MEDS: Nystatin Cream 15 GM TUBE TOP SCH ×2 (08:27→20:36)
[2018-09-04] MEDS: Mupirocin 2% Ointment 22 GM Tube TOP SCH ×3 (08:27→20:36)
[2018-09-04] MEDS: Collagenase 250 UNITS/GM Ointment 30 GM TUBE TOP SCH (08:27)
[2018-09-04] MEDS: HumaLOG 300 UNITS/3 ML VIAL SC PRN (12:07)
[2018-09-04] MEDS: HYDROcodone/Acetaminophen 5/325 mg Tablet PO PRN (13:03)
[2018-09-04] MEDS: Tamsulosin HCl 0.4 MG CAP PO SCH (20:36)
[2018-09-05] MEDS: Polyethylene Glycol 3350 17 GM Packet PO SCH (09:05)
[2018-09-05] MEDS: glipiZIDE 5 MG TAB PO SCH (09:05)
[2018-09-05] MEDS: Gabapentin 300 MG CAP PO SCH ×3 (09:05→20:09)
[2018-09-05] MEDS: metFORMIN 500 MG TAB PO SCH ×2 (09:05→17:05)
[2018-09-05] MEDS: Clopidogrel Bisulfate 75 MG TAB PO SCH (09:05)
[2018-09-05] MEDS: Metoprolol Tartrate 50 MG TAB PO SCH ×2 (09:05→20:10)
[2018-09-05] MEDS: Nystatin Cream 15 GM TUBE TOP SCH ×2 (09:05→20:11)
[2018-09-05] MEDS: Furosemide 20 MG TAB PO SCH (09:05)
[2018-09-05] MEDS: Fluconazole 100 MG TAB PO SCH (09:05)
[2018-09-05] MEDS: Mupirocin 2% Ointment 22 GM Tube TOP SCH ×3 (09:05→20:11)
[2018-09-05] MEDS: Doxycycline 100 MG CAP PO SCH ×2 (09:05→20:09)
[2018-09-05] MEDS: Finasteride 5 MG TAB PO SCH (09:05)
[2018-09-05] MEDS: Digoxin 0.125 MG TAB PO SCH (09:05)
[2018-09-05] MEDS: Collagenase 250 UNITS/GM Ointment 30 GM TUBE TOP SCH (09:05)
[2018-09-05] MEDS: HYDROcodone/Acetaminophen 5/325 mg Tablet PO PRN (17:15)
[2018-09-05] MEDS: Tamsulosin HCl 0.4 MG CAP PO SCH (20:10)
[2018-09-06] MEDS: metFORMIN 500 MG TAB PO SCH ×2 (08:40→17:11)
[2018-09-06] MEDS: Clopidogrel Bisulfate 75 MG TAB PO SCH (08:40)
[2018-09-06] MEDS: Gabapentin 300 MG CAP PO SCH ×3 (08:40→21:24)
[2018-09-06] MEDS: Finasteride 5 MG TAB PO SCH (08:40)
[2018-09-06] MEDS: Doxycycline 100 MG CAP PO SCH (08:40)
[2018-09-06] MEDS: Polyethylene Glycol 3350 17 GM Packet PO SCH (08:41)
[2018-09-06] MEDS: Digoxin 0.125 MG TAB PO SCH (08:41)
[2018-09-06] MEDS: Metoprolol Tartrate 50 MG TAB PO SCH ×2 (08:41→21:25)
[2018-09-06] MEDS: Furosemide 20 MG TAB PO SCH (08:41)
[2018-09-06] MEDS: glipiZIDE 5 MG TAB PO SCH (08:41)
[2018-09-06] MEDS: Nystatin Cream 15 GM TUBE TOP SCH ×2 (08:45→21:24)
[2018-09-06] MEDS: Mupirocin 2% Ointment 22 GM Tube TOP SCH ×3 (08:45→21:24)
[2018-09-06] MEDS: Collagenase 250 UNITS/GM Ointment 30 GM TUBE TOP SCH (08:45)
[2018-09-06] MEDS: HYDROcodone/Acetaminophen 5/325 mg Tablet PO PRN (09:35)
[2018-09-06] MEDS ORDERED: Calcium Carbonate 500 MG ChewTAB PO PRN (13:35)
[2018-09-06 18:20] VITALS: BMI 24.9
[2018-09-06] MEDS: Tamsulosin HCl 0.4 MG CAP PO SCH (21:24)
[2018-09-07] MEDS: metFORMIN 500 MG TAB PO SCH ×2 (08:07→16:40)
[2018-09-07] MEDS: Gabapentin 300 MG CAP PO SCH ×3 (08:08→20:49)
[2018-09-07] MEDS: Metoprolol Tartrate 50 MG TAB PO SCH ×2 (08:08→20:49)
[2018-09-07] MEDS: Polyethylene Glycol 3350 17 GM Packet PO SCH (08:08)
[2018-09-07] MEDS: Finasteride 5 MG TAB PO SCH (08:08)
[2018-09-07] MEDS: glipiZIDE 5 MG TAB PO SCH (08:08)
[2018-09-07] MEDS: Furosemide 20 MG TAB PO SCH (08:08)
[2018-09-07] MEDS: Clopidogrel Bisulfate 75 MG TAB PO SCH (08:08)
[2018-09-07] MEDS: Digoxin 0.125 MG TAB PO SCH (08:10)
[2018-09-07] MEDS: Nystatin Cream 15 GM TUBE TOP SCH ×2 (08:14→20:45)
[2018-09-07] MEDS: Collagenase 250 UNITS/GM Ointment 30 GM TUBE TOP SCH (08:14)
[2018-09-07] MEDS: Mupirocin 2% Ointment 22 GM Tube TOP SCH ×3 (08:14→20:45)
[2018-09-07] MEDS: Tamsulosin HCl 0.4 MG CAP PO SCH (20:49)
[2018-09-07] MEDS: HYDROcodone/Acetaminophen 5/325 mg Tablet PO PRN (20:50)
[2018-09-08] MEDS: Polyethylene Glycol 3350 17 GM Packet PO SCH (08:23)
[2018-09-08] MEDS: Metoprolol Tartrate 50 MG TAB PO SCH ×2 (08:24→20:16)
[2018-09-08] MEDS: glipiZIDE 5 MG TAB PO SCH (08:24)
[2018-09-08] MEDS: Gabapentin 300 MG CAP PO SCH ×3 (08:24→20:16)
[2018-09-08] MEDS: Furosemide 20 MG TAB PO SCH (08:24)
[2018-09-08] MEDS: metFORMIN 500 MG TAB PO SCH ×2 (08:24→16:51)
[2018-09-08] MEDS: Clopidogrel Bisulfate 75 MG TAB PO SCH (08:24)
[2018-09-08] MEDS: Finasteride 5 MG TAB PO SCH (08:24)
[2018-09-08] MEDS: Digoxin 0.125 MG TAB PO SCH (08:25)
[2018-09-08] MEDS: Collagenase 250 UNITS/GM Ointment 30 GM TUBE TOP SCH (08:28)
[2018-09-08] MEDS: Mupirocin 2% Ointment 22 GM Tube TOP SCH ×3 (08:28→20:19)
[2018-09-08] MEDS: Nystatin Cream 15 GM TUBE TOP SCH ×2 (08:28→20:19)
[2018-09-08] MEDS: Tamsulosin HCl 0.4 MG CAP PO SCH (20:16)
[2018-09-08] MEDS: HYDROcodone/Acetaminophen 5/325 mg Tablet PO PRN (20:17)
[2018-09-09] MEDS: Gabapentin 300 MG CAP PO SCH ×3 (08:30→20:53)
[2018-09-09] MEDS: Digoxin 0.125 MG TAB PO SCH (08:30)
[2018-09-09] MEDS: Finasteride 5 MG TAB PO SCH (08:30)
[2018-09-09] MEDS: Metoprolol Tartrate 50 MG TAB PO SCH ×2 (08:30→20:53)
[2018-09-09] MEDS: glipiZIDE 5 MG TAB PO SCH (08:31)
[2018-09-09] MEDS: Furosemide 20 MG TAB PO SCH (08:31)
[2018-09-09] MEDS: Clopidogrel Bisulfate 75 MG TAB PO SCH (08:31)
[2018-09-09] MEDS: Nystatin Cream 15 GM TUBE TOP SCH ×2 (08:32→20:54)
[2018-09-09] MEDS: Polyethylene Glycol 3350 17 GM Packet PO SCH (08:32)
[2018-09-09] MEDS: Mupirocin 2% Ointment 22 GM Tube TOP SCH ×3 (08:32→20:54)
[2018-09-09] MEDS: Collagenase 250 UNITS/GM Ointment 30 GM TUBE TOP SCH (08:32)
[2018-09-09] MEDS: metFORMIN 500 MG TAB PO SCH ×2 (08:35→17:08)
[2018-09-09] MEDS: HumaLOG 300 UNITS/3 ML VIAL SC PRN (17:08)
[2018-09-09] MEDS: Tamsulosin HCl 0.4 MG CAP PO SCH (20:53)
[2018-09-10 06:48] VITALS: BP 101/63; TEMP 98.3
[2018-09-10] MEDS: Finasteride 5 MG TAB PO SCH (08:32)
[2018-09-10] MEDS: Metoprolol Tartrate 50 MG TAB PO SCH (08:33)
[2018-09-10] MEDS: metFORMIN 500 MG TAB PO SCH (08:33)
[2018-09-10] MEDS: Furosemide 20 MG TAB PO SCH (08:33)
[2018-09-10] MEDS: Clopidogrel Bisulfate 75 MG TAB PO SCH (08:33)
[2018-09-10] MEDS: glipiZIDE 5 MG TAB PO SCH (08:33)
[2018-09-10] MEDS: Gabapentin 300 MG CAP PO SCH (08:33)
[2018-09-10] MEDS: Digoxin 0.125 MG TAB PO SCH (08:33)
[2018-09-10] MEDS: Collagenase 250 UNITS/GM Ointment 30 GM TUBE TOP SCH (08:34)
[2018-09-10] MEDS: Mupirocin 2% Ointment 22 GM Tube TOP SCH (08:34)
[2018-09-10] MEDS: Nystatin Cream 15 GM TUBE TOP SCH (08:34)
[2018-09-10] MEDS: Polyethylene Glycol 3350 17 GM Packet PO SCH (08:35)
[2018-09-10] MEDS: HYDROcodone/Acetaminophen 5/325 mg Tablet PO PRN (11:19)
[2018-09-10] MEDS ORDERED: Metoprolol Tartrate 25 MG TAB PO SCH (21:00)
== END 2018-09-10 11:00 | disposition home health service (06) | DRG 690 ==
LOC: MADMS 16:38
PROVIDERS: ADMIT Family Medicine; ATTEND Family Medicine
DX: N39.0 Urinary tract infection, site not specified (principal); E22.2 Syndrome of inappropriate secretion of antidiuretic hormone; I50.32 Chronic diastolic (congestive) heart failure; B95.62 Methicillin resistant Staphylococcus aureus infection as the cause of diseases classified elsewhere; N40.0 Benign prostatic hyperplasia without lower urinary tract symptoms; R31.9 Hematuria, unspecified; R26.81 Unsteadiness on feet; L89.629 Pressure ulcer of left heel, unspecified stage; R53.1 Weakness; E78.5 Hyperlipidemia, unspecified; I11.0 Hypertensive heart disease with heart failure; E11.51 Type 2 diabetes mellitus with diabetic peripheral angiopathy without gangrene; I48.0 Paroxysmal atrial fibrillation; I25.10 Atherosclerotic heart disease of native coronary artery without angina pectoris; R53.81 Other malaise; Z98.61 Coronary angioplasty status; Z79.01 Long term (current) use of anticoagulants; Z79.02 Long term (current) use of antithrombotics/antiplatelets; Z98.890 Other specified postprocedural states; Z87.891 Personal history of nicotine dependence; Z88.2 Allergy status to sulfonamides; Z88.8 Allergy status to other drugs, medicaments and biological substances
CPT/HCPCS: 36415; 36416; 80048; 87070; 87077; 87186; 87205; Q0162